=== PATIENT | male | born 1960 | race Caucasian/White ===

== ENCOUNTER 2025-08-19 06:17 | Day surgery (SDC) | payer BC, SELFPAY | END 2025-08-19 11:01 | disposition home or self-care (01) | LOC: GI 06:17 | PROVIDERS: ATTENDING PHYSICIAN Surgery | DX: Z12.11 Encounter for screening for malignant neoplasm of colon (principal); K57.30 Diverticulosis of large intestine without perforation or abscess without bleeding; Z80.0 Family history of malignant neoplasm of digestive organs | CPT/HCPCS: G0105 ==